=== PATIENT | female | born 1970 | race Caucasian/White ===

== ENCOUNTER 2017-02-24 15:21 | Emergency (ER) | payer OTHER ==
[~2017-02-24] VITALS: Ht 149.9 cm; Wt 84.8 kg
[2017-02-24 15:28] VITALS: BP 127/73
== END 2017-02-24 17:17 | disposition home or self-care (01) ==
LOC: ED 15:21
DX: S96.911A Strain of unspecified muscle and tendon at ankle and foot level, right foot, initial encounter (principal); E78.00 Pure hypercholesterolemia, unspecified; Z98.890 Other specified postprocedural states; X58.XXXA Exposure to other specified factors, initial encounter; Y93.89 Activity, other specified; Y99.8 Other external cause status; Y92.89 Other specified places as the place of occurrence of the external cause

== ENCOUNTER 2017-07-22 22:28 | Emergency (ER) | payer OTHER | END 2017-07-22 23:18 | disposition left against medical advice (07) | LOC: ED 22:28 | DX: Z53.21 Procedure and treatment not carried out due to patient leaving prior to being seen by health care provider (principal) ==

== ENCOUNTER 2017-07-22 23:36 | Emergency (ER) | payer OTHER | END 2017-07-23 00:15 | disposition left against medical advice (07) | LOC: ED 23:36 | DX: Z53.21 Procedure and treatment not carried out due to patient leaving prior to being seen by health care provider (principal) ==

== ENCOUNTER 2017-07-23 14:57 | Emergency (ER) | payer OTHER ==
[~2017-07-23] VITALS: Ht 149.9 cm; Wt 86.2 kg
[2017-07-23 17:14] VITALS: BP 120/74
== END 2017-07-23 17:14 | disposition home or self-care (01) ==
LOC: ED 14:57
DX: T23.202D Burn of second degree of left hand, unspecified site, subsequent encounter (principal); X08.8XXD Exposure to other specified smoke, fire and flames, subsequent encounter
CPT/HCPCS: J7030

== ENCOUNTER 2018-03-21 17:16 | Emergency (ER) | payer OTHER ==
[~2018-03-21] VITALS: Ht 429.3 cm; Wt 87.5 kg
[2018-03-21 17:23] VITALS: Ht 429.3 cm; Wt 87.5 kg
[2018-03-21 18:30] LABS: PLATELET COUNT 291 x10^3mcL (130-400)
[2018-03-21 18:42] LABS: BASOPHIL % 0 % (0-2); CALCIUM 8.5 mg/dL (8.5-10.1); CARBON DIOXIDE 27.4 mmol/L (21-32); CHLORIDE SERUM 106 mmol/L (98-107); GFR1 > 60 mL/min; GLUCOSE SERUM 93 mg/dL (74-106); POTASSIUM SERUM 4.4 mmol/L (3.5-5.1); RED CELL DISTRIBUTION WIDTH 16.9 % (11.5-14.5); SODIUM SERUM 142 mmol/L (136-145)
[2018-03-21 18:46] LABS: ALBUMIN 3.6 g/dL (3.4-5.0); ALKALINE PHOSPHATASE 212 U/L (46-116); ALT/SGPT 256 U/L (14-59); AMYLASE 77 U/L (25-115); AST/SGOT 159 U/L (15-37); BILIRUBIN TOTAL 0.3 mg/dL (0.20-1.00); LIPASE 164 IU/L (73-393); TOTAL PROTEIN, SERUM 7.4 g/dL (6.4-8.2)
[2018-03-21 20:08] VITALS: BP 137/51
[2018-03-21 20:41] LABS: UA SPECIFIC GRAVITY 1.025 (1.005-1.035); microscopic required? YES; urine erythrocyte NEGATIVE (NEGATIVE)
== END 2018-03-21 20:08 | disposition home or self-care (01) ==
LOC: ED 17:16
PROVIDERS: Emergency Medicine
DX: S29.011A Strain of muscle and tendon of front wall of thorax, initial encounter (principal); R94.5 Abnormal results of liver function studies; K76.0 Fatty (change of) liver, not elsewhere classified; J45.909 Unspecified asthma, uncomplicated; Z90.49 Acquired absence of other specified parts of digestive tract; Z90.710 Acquired absence of both cervix and uterus; X58.XXXA Exposure to other specified factors, initial encounter; Y93.89 Activity, other specified; Y92.89 Other specified places as the place of occurrence of the external cause; Y99.8 Other external cause status
CPT/HCPCS: 83880; J1885; J2765; J7030

== ENCOUNTER 2018-03-24 19:37 | Emergency (ER) | payer OTHER ==
[~2018-03-24] VITALS: Ht 149.9 cm; Wt 86.2 kg
[2018-03-24 19:51] VITALS: Ht 149.9 cm; Wt 86.2 kg
[2018-03-24 20:42] LABS: BASOPHIL % 0.4 % (0-2); PLATELET COUNT 309 x10^3mcL (130-400)
[2018-03-24 20:47] LABS: RED CELL DISTRIBUTION WIDTH 16.6 % (11.5-14.5)
[2018-03-24 20:54] LABS: CALCIUM 8.7 mg/dL (8.5-10.1); CARBON DIOXIDE 29.4 mmol/L (21-32); CHLORIDE SERUM 107 mmol/L (98-107); CREATININE SERUM 0.8 mg/dL (0.6-1.0); GFR1 > 60 mL/min; GLUCOSE SERUM 88 mg/dL (74-106); POTASSIUM SERUM 3.9 mmol/L (3.5-5.1); SODIUM SERUM 143 mmol/L (136-145)
[2018-03-24 20:58] LABS: ALBUMIN 3.5 g/dL (3.4-5.0); ALKALINE PHOSPHATASE 217 U/L (46-116); ALT/SGPT 251 U/L (14-59); AMYLASE 87 U/L (25-115); AST/SGOT 161 U/L (15-37); BILIRUBIN TOTAL 0.34 mg/dL (0.20-1.00); LIPASE 151 IU/L (73-393); TOTAL PROTEIN, SERUM 7.3 g/dL (6.4-8.2)
[2018-03-24 21:40] LABS: microscopic required? NO
[2018-03-24 22:13] LABS: UA SPECIFIC GRAVITY >=1.030 (1.005-1.035); urine erythrocyte NEGATIVE (NEGATIVE)
[2018-03-24 23:32] VITALS: BP 110/66
== END 2018-03-24 23:32 | disposition home or self-care (01) ==
LOC: ED 19:37
PROVIDERS: Emergency Medicine
DX: R74.0 Nonspecific elevation of levels of transaminase and lactic acid dehydrogenase [LDH] (principal); D64.9 Anemia, unspecified; J45.909 Unspecified asthma, uncomplicated; Z90.49 Acquired absence of other specified parts of digestive tract; Z90.09 Acquired absence of other part of head and neck; Z90.710 Acquired absence of both cervix and uterus
CPT/HCPCS: 83880; J2405; J3010; J3490; Q0162

== ENCOUNTER 2018-10-11 19:30 | Emergency (ER) | payer OTHER ==
[~2018-10-11] VITALS: Ht 149.9 cm; Wt 85.7 kg
[2018-10-11 20:13] VITALS: Ht 149.9 cm; Wt 85.7 kg
[2018-10-11 23:39] VITALS: BP 128/70
== END 2018-10-11 23:39 | disposition home or self-care (01) ==
LOC: ED 19:30
DX: S43.401A Unspecified sprain of right shoulder joint, initial encounter (principal); J45.909 Unspecified asthma, uncomplicated; E78.00 Pure hypercholesterolemia, unspecified; Z90.89 Acquired absence of other organs; Z98.890 Other specified postprocedural states; Z90.710 Acquired absence of both cervix and uterus; W18.39XA Other fall on same level, initial encounter; Y93.89 Activity, other specified; Y92.89 Other specified places as the place of occurrence of the external cause; Y99.8 Other external cause status

== ENCOUNTER 2018-11-08 12:50 | Inpatient (IN) | payer OTHER ==
[~2018-11-08] VITALS: Ht 149.9 cm; Wt 85.3 kg
[2018-11-08 12:59] VITALS: Ht 149.9 cm; Wt 85.3 kg
[2018-11-08 14:04] LABS: BASOPHIL % 0.2 % (0-2); PLATELET COUNT 255 x10^3mcL (130-400)
[2018-11-08 14:05] LABS: RED CELL DISTRIBUTION WIDTH 17.2 % (11.5-14.5)
[2018-11-08 14:12] LABS: CALCIUM 8.6 mg/dL (8.5-10.1); CARBON DIOXIDE 27.3 mmol/L (21-32); CHLORIDE SERUM 104 mmol/L (98-107); CREATININE SERUM 0.8 mg/dL (0.6-1.0); GFR1 > 60 mL/min; GLUCOSE SERUM 97 mg/dL (74-106); POTASSIUM SERUM 3.9 mmol/L (3.5-5.1); SODIUM SERUM 138 mmol/L (136-145)
[2018-11-08 14:16] LABS: ALBUMIN 3.6 g/dL (3.4-5.0); ALKALINE PHOSPHATASE 140 U/L (46-116); ALT/SGPT 61 U/L (14-59); AST/SGOT 40 U/L (15-37); BILIRUBIN TOTAL 0.26 mg/dL (0.20-1.00); CHOLESTEROL 157 mg/dL (<200); HDL CHOLESTEROL 60 mg/dL (40-60); PHOSPHOROUS 2.3 mg/dL (2.5-4.9); TOTAL PROTEIN, SERUM 7.4 g/dL (6.4-8.2); URIC ACID 3.9 mg/dL (2.6-6.0)
[2018-11-08 14:53] LABS: UA SPECIFIC GRAVITY 1.015 (1.005-1.035); microscopic required? YES; urine erythrocyte NEGATIVE (NEGATIVE)
[2018-11-08 15:05] LABS: AMPHETAMINE QUAL UR NONE DETECTED (See below)
[2018-11-08 17:31] LABS: TOTAL PROTEIN CSF 21.6 mg/dL (15-45)
[2018-11-08 17:48] LABS: APPEARANCE CSF CLEAR; COLOR CSF COLORLESS; WBC CSF 0 /cumm (0-5)
[2018-11-08 17:49] LABS: RBC CSF 504 /cumm (0)
[2018-11-08 17:50] LABS: APPEARANCE CSF CLEAR; COLOR CSF COLORLESS; RBC CSF 1 /cumm (0); WBC CSF 0 /cumm (0-5)
[2018-11-08 19:26] VITALS: BP 132/68
[2018-11-08 19:43] LABS: T3 TOTAL 1.13 ng/mL
[2018-11-08 19:44] LABS: FREE T4 0.85 ng/dL (0.76-1.46); FREE THYROXINE INDEX 2.2 ug/dL (1.4-4.5)
[2018-11-08 20:41] LABS: CHOLESTEROL/HDL RATIO 2.9
[2018-11-08 23:52] VITALS: BP 132/68
[2018-11-09 05:31] VITALS: BP 112/54
[2018-11-09 06:22] LABS: BASOPHIL % 0.1 % (0-2); PLATELET COUNT 208 x10^3mcL (130-400)
[2018-11-09 06:25] LABS: RED CELL DISTRIBUTION WIDTH 17.5 % (11.5-14.5)
[2018-11-09 06:54] LABS: ALKALINE PHOSPHATASE 187 U/L (46-116); ALT/SGPT 100 U/L (14-59); AST/SGOT 111 U/L (15-37); BILIRUBIN DIRECT 0.29 mg/dL (0.0-0.2); BILIRUBIN TOTAL 0.45 mg/dL (0.20-1.00); CALCIUM 8.5 mg/dL (8.5-10.1); CARBON DIOXIDE 26.6 mmol/L (21-32); CHLORIDE SERUM 106 mmol/L (98-107); CREATININE SERUM 0.9 mg/dL (0.6-1.0); GFR1 > 60 mL/min; GLUCOSE SERUM 115 mg/dL (74-106); PHOSPHOROUS 3.8 mg/dL (2.5-4.9); POTASSIUM SERUM 4.3 mmol/L (3.5-5.1); SODIUM SERUM 141 mmol/L (136-145); TOTAL PROTEIN, SERUM 6.7 g/dL (6.4-8.2)
[2018-11-09 06:55] LABS: ALBUMIN 3.1 g/dL (3.4-5.0)
[2018-11-09 09:30] VITALS: BP 122/71
[2018-11-09 18:24] VITALS: BP 109/58
[2018-11-09 21:21] VITALS: BP 101/55
[2018-11-10 05:52] VITALS: BP 98/60
[2018-11-10 06:33] LABS: CALCIUM 8.4 mg/dL (8.5-10.1); CARBON DIOXIDE 24.2 mmol/L (21-32); CHLORIDE SERUM 106 mmol/L (98-107); CREATININE SERUM 0.7 mg/dL (0.6-1.0); GFR1 > 60 mL/min; GLUCOSE SERUM 107 mg/dL (74-106); MAGNESIUM 1.8 mg/dL (1.8-2.4); PHOSPHOROUS 3.1 mg/dL (2.5-4.9); POTASSIUM SERUM 3.9 mmol/L (3.5-5.1); SODIUM SERUM 139 mmol/L (136-145)
[2018-11-10 07:40] LABS: BASOPHIL % 0.3 % (0-2); PLATELET COUNT 169 x10^3mcL (130-400); RED CELL DISTRIBUTION WIDTH 17.6 % (11.5-14.5)
[2018-11-10 08:30] VITALS: BP 99/57
[2018-11-10 19:15] VITALS: BP 131/50
[2018-11-10 21:37] VITALS: BP 122/70
[2018-11-11 06:21] VITALS: BP 125/72
[2018-11-11 06:40] LABS: CALCIUM 9.4 mg/dL (8.5-10.1); CARBON DIOXIDE 26.5 mmol/L (21-32); CHLORIDE SERUM 105 mmol/L (98-107); CREATININE SERUM 0.7 mg/dL (0.6-1.0); GFR1 > 60 mL/min; GLUCOSE SERUM 159 mg/dL (74-106); MAGNESIUM 1.9 mg/dL (1.8-2.4); PHOSPHOROUS 3.9 mg/dL (2.5-4.9); POTASSIUM SERUM 4.1 mmol/L (3.5-5.1); SODIUM SERUM 141 mmol/L (136-145)
[2018-11-11 08:40] LABS: BASOPHIL % 0.2 % (0-2); PLATELET COUNT 205 x10^3mcL (130-400)
[2018-11-11 08:41] LABS: RED CELL DISTRIBUTION WIDTH 18.1 % (11.5-14.5)
[2018-11-11 09:55] VITALS: BP 95/48
[2018-11-11 14:07] VITALS: BP 113/63
[2018-11-11 17:40] VITALS: BP 102/61
[2018-11-11 21:00] VITALS: BP 103/50
[2018-11-12 05:55] VITALS: BP 105/58
[2018-11-12 08:42] VITALS: BP 114/66
[2018-11-12 11:45] VITALS: BP 107/65
[2018-11-12 15:27] VITALS: BP 95/44; BP 99/64
[2018-11-12 20:40] VITALS: BP 107/55
[2018-11-13 04:50] VITALS: BP 104/37
[2018-11-13 06:17] LABS: CARBON DIOXIDE 28.1 mmol/L (21-32); CHLORIDE SERUM 106 mmol/L (98-107); CREATININE SERUM 0.7 mg/dL (0.6-1.0); GFR1 > 60 mL/min; GLUCOSE SERUM 110 mg/dL (74-106); PHOSPHOROUS 3.6 mg/dL (2.5-4.9); POTASSIUM SERUM 3.5 mmol/L (3.5-5.1); SODIUM SERUM 143 mmol/L (136-145)
[2018-11-13 06:42] LABS: BASOPHIL % 0.1 % (0-2); PLATELET COUNT 206 x10^3mcL (130-400)
[2018-11-13 07:20] LABS: RED CELL DISTRIBUTION WIDTH 17.9 % (11.5-14.5)
[2018-11-13 07:24] VITALS: BP 92/56
[2018-11-13 12:18] VITALS: BP 106/67
[2018-11-13 16:12] VITALS: BP 103/63
[2018-11-13 20:11] VITALS: BP 108/61
[2018-11-14 06:29] VITALS: BP 101/57
[2018-11-14 07:23] LABS: CALCIUM 8.5 mg/dL (8.5-10.1); CARBON DIOXIDE 27.5 mmol/L (21-32); CHLORIDE SERUM 102 mmol/L (98-107); CREATININE SERUM 0.8 mg/dL (0.6-1.0); GFR1 > 60 mL/min; GLUCOSE SERUM 185 mg/dL (74-106); MAGNESIUM 2.2 mg/dL (1.8-2.4); PHOSPHOROUS 4.6 mg/dL (2.5-4.9); POTASSIUM SERUM 4.9 mmol/L (3.5-5.1); SODIUM SERUM 140 mmol/L (136-145)
[2018-11-14 08:57] VITALS: BP 131/69
[2018-11-14 09:20] LABS: BASOPHIL % 0.1 % (0-2); PLATELET COUNT 201 x10^3mcL (130-400); RED CELL DISTRIBUTION WIDTH 18.1 % (11.5-14.5)
[2018-11-14 12:09] VITALS: BP 113/64
[2018-11-14 16:22] VITALS: BP 112/68
[2018-11-14 17:56] VITALS: BP 112/68
[2018-11-14 19:45] VITALS: BP 92/53
[2018-11-15 05:45] VITALS: BP 147/65
[2018-11-15 07:23] LABS: BASOPHIL % 0.1 % (0-2); PLATELET COUNT 204 x10^3mcL (130-400); RED CELL DISTRIBUTION WIDTH 18.4 % (11.5-14.5)
[2018-11-15 07:34] LABS: CARBON DIOXIDE 27.2 mmol/L (21-32); CHLORIDE SERUM 104 mmol/L (98-107); CREATININE SERUM 0.7 mg/dL (0.6-1.0); GFR1 > 60 mL/min; GLUCOSE SERUM 180 mg/dL (74-106); POTASSIUM SERUM 4.7 mmol/L (3.5-5.1); SODIUM SERUM 140 mmol/L (136-145)
[2018-11-15 09:30] VITALS: BP 128/65
[2018-11-15 12:00] VITALS: BP 117/66
[2018-11-15 17:00] VITALS: BP 127/69
[2018-11-15 20:13] VITALS: BP 117/70
[2018-11-16 05:28] VITALS: BP 103/59
[2018-11-16 06:34] LABS: BASOPHIL % 0.3 % (0-2); PLATELET COUNT 218 x10^3mcL (130-400); RED CELL DISTRIBUTION WIDTH 18.4 % (11.5-14.5)
[2018-11-16 06:46] LABS: CALCIUM 8.3 mg/dL (8.5-10.1); CARBON DIOXIDE 28.9 mmol/L (21-32); CHLORIDE SERUM 107 mmol/L (98-107); CREATININE SERUM 0.8 mg/dL (0.6-1.0); GFR1 > 60 mL/min; GLUCOSE SERUM 105 mg/dL (74-106); POTASSIUM SERUM 3.9 mmol/L (3.5-5.1); SODIUM SERUM 142 mmol/L (136-145)
[2018-11-16 09:04] VITALS: BP 96/54
[2018-11-16] MEDS ORDERED: SERTRALINE50 M1 PO (15:06)
[2018-11-16 16:09] VITALS: BP 96/54
[2018-11-16 17:27] VITALS: BP 127/66
== END 2018-11-16 20:20 | disposition home or self-care (01) | DRG 137 ==
LOC: ED 12:50 → MU 18:25 → DU 11-10 18:52 → MU 11-15 22:37
PROVIDERS: Emergency Medicine; Internal Medicine; ADMIT Family Medicine
PROC: 009U3ZX Drainage of Spinal Canal, Percutaneous Approach, Diagnostic (ICD-10-PCS; principal; 2018-11-08)
DX: J69.0 Pneumonitis due to inhalation of food and vomit (principal); K76.0 Fatty (change of) liver, not elsewhere classified; E83.39 Other disorders of phosphorus metabolism; G43.909 Migraine, unspecified, not intractable, without status migrainosus; E66.9 Obesity, unspecified; R74.0 Nonspecific elevation of levels of transaminase and lactic acid dehydrogenase [LDH]; Z98.84 Bariatric surgery status; E78.00 Pure hypercholesterolemia, unspecified; Z90.49 Acquired absence of other specified parts of digestive tract; E78.5 Hyperlipidemia, unspecified; J98.11 Atelectasis; F45.9 Somatoform disorder, unspecified; F32.9 Major depressive disorder, single episode, unspecified; Z90.710 Acquired absence of both cervix and uterus; Z98.891 History of uterine scar from previous surgery; J45.909 Unspecified asthma, uncomplicated; Z68.38 Body mass index [BMI] 38.0-38.9, adult; Z23 Encounter for immunization
CPT/HCPCS: 82962; 84439; 87804; 90658; 94150; J0456; J0696; J0780; J1885; J2060; J2270; J2405; J2543; J2930; J3010; J3030; J7030; Q0092